=== PATIENT | male | born 1940 | race Caucasian/White ===

== ENCOUNTER → 2018-06-16 | Outpatient (CLI) | payer OTHER, MEDICARE ==
[~2018-06-16] MED LIST: ADULT LOW DOSE81 MG PO; FISHOIL; LISINOPRIL20 MG PO
[2018-06-16 09:58] LABS: ABSOLUTE BASOPHILS 0.1 thou/uL (0.0-0.2); ABSOLUTE EOSINOPHILS 0.5 thou/uL (0.0-0.7); ABSOLUTE LYMPHOCYTES 5.3 thou/uL (0.8-5.3); ABSOLUTE MONOCYTES 0.6 thou/uL (0.0-1.2); ABSOLUTE NEUTROPHILS 5.3 thou/uL (1.6-8.1); BASOPHILS 0.5 %; EOSINOPHILS 4.3 %; HEMATOCRIT 45.2 % (42.0-52.0); HEMOGLOBIN 15.2 gm/dL (14.0-18.0); LYMPHOCYTES 45.2 %; MCHC 33.7 g/dL (28.0-37.0); MONOCYTES 5.4 %; MPV 9.2 fl. (7.2-11.1); NUCLEATED RBCS 0 /100WBC; PLATELET COUNT* 240 thou/uL (150-400); POLYS 44.6 %; RBC 4.47 mil/uL (4.50-6.00); RDW-CV 13.2 % (10.5-14.5); WBC 11.8 thou/uL (4.0-11.0)
[2018-06-16 10:07] LABS: CALCIUM 9.9 mg/dL (8.5-10.1); CREATININE 1.3 mg/dL (0.6-1.3); POTASSIUM 4.6 mmol/L (3.5-5.1)
[2018-06-16 10:12] LABS: ALBUMIN 3.3 g/dL (3.4-5.0); TOTAL BILIRUBIN 0.9 mg/dL (<0.1-1.0); TOTAL PROTEIN 7.2 g/dL (6.4-8.2)
== END ==
LOC: M.LAB 09:39
PROVIDERS: Internal Medicine Cardiovascular Disease
DX: I48.91 Unspecified atrial fibrillation (principal)

== ENCOUNTER → 2020-11-03 | Outpatient (CLI) | payer OTHER, MEDICARE ==
[2020-11-03] VITALS (8 sets, daily range): BP systolic 119–172; BP diastolic 57–95
[~2020-11-03] MED LIST changes: +LIPITOR40 MG PO; +METFORMIN HCL500 M3 PO; +MICARDIS 80 MG80 MG PO; +MULTAQ400 MG PO; +XARELTO20 MG PO
--- NOTE | ~2020-11-03 | CARD ---
[address] [address] CARDIAC CATH REPORT Name: EDELJESSICA Skye Room: [facility]#: [id number] Admission: 11/03/20 Attend Phys: Jeevan Rock MD Discharge: Date of : 40 Report #: [id number] THIS REPORT FOR: //name// cc: Ajit Shah MD, Dean L. MD ~ CC: Ajit Rock DATE OF SERVICE: 11/03/2020 PROCEDURE: DC cardioversion. INDICATION: Persistent atrial fibrillation. DESCRIPTION OF PROCEDURE: After informed consent was obtained, the patient was brought to the cardiac holding area. A AYANNA was performed and will be reported separately. Finding no evidence of intracardiac thrombus and the patient underwent direct current cardioversion with a single biphasic shock of 300 joules. The patient was anesthetized with intravenous Versed and fentanyl for conscious sedation. The patient tolerated the procedure without complication. IMPRESSION: 1. Persistent atrial fibrillation. 2. Successful transesophageal guided direct current cardioversion to normal sinus rhythm. By: [id number] 1722Michael Fortino Rock MD, FACC /nt
[2020-11-03 13:20] LABS: HEMATOCRIT 43.7 % (42.0-52.0); HEMOGLOBIN 14.3 gm/dL (14.0-18.0); MCH 33.8 pg (26.0-34.0); MCHC 32.8 g/dL (28.0-37.0); MCV 103.1 fL (80.0-100.0); MPV 9.6 fl. (7.2-11.1); RBC 4.24 mil/uL (4.50-6.00); RDW-CV 13.5 % (10.5-14.5)
[2020-11-03 13:29] LABS: ALBUMIN 4.1 g/dL (3.4-5.0); POTASSIUM 4.2 mmol/L (3.5-5.1); TOTAL BILIRUBIN 0.9 mg/dL (<0.1-1.0); TOTAL PROTEIN 7.3 g/dL (6.4-8.2)
--- NOTE | 2020-11-03 16:52 | TEE ---
[place] [address] TRANSESOPHAGEAL ECHOCARDIOGRAM Name: JESSICA HOLLINGSWORTH Room: [facility]#: [id number] Admission: 11/03/20 Attend Phys: Jeevan Rock, Discharge: Date of : 40 Date of Service: 11/03/20 1651 Report #: [id number] THIS REPORT FOR: cc: Ajit Shah MD, Dean L. MD Liston, Michael J. MD [facility] ~ APPROVED REPORT Study performed: 11/03/2020 13:01:48 EXAM: Transesophageal Echocardiogram Patient Location: Out-Patient Status: routine BSA: 2.16 HR: 76 bpm BP: 161/71 mmHg Rhythm: Atrial Fibrillation Other Information Study Quality: Good Indications Atrial Fibrillation Echo Enhancing Agent Indication: Rule out Shunt Agent(s) / Amount(s) Used: Agitated Saline 10 cc Procedure After obtaining informed consent, patient underwent transesophageal echo in the [employer]. Type of Sedation : Conscious Sedation Sedation was administered by Paola Medrano RN. Sedation start time: 1330 Case end Time: 1345 Sedation was achieved intravenously with: Versed (5) Fentanyl (150) Transesophageal probe was inserted and advanced into esophagus without difficulty by Jeevan Rock MD, FAC. Echo enhancement indication: R/O Septal defect. Echo enhancement agent administered: Agitated Saline The AYANNA was performed without complications. Synchronized Cardioversion acheived with 300 Joules after 1 attempt(s). Rhythm following Synchronized Cardioversion: [place] [address] TRANSESOPHAGEAL ECHOCARDIOGRAM Name: JESSICA HOLLINGSWORTH Room: [facility]#: [id number] Admission: 11/03/20 Attend Phys: Jeevan Rock, Discharge: Date of : 40 Date of Service: 11/03/20 1651 Report #: [id number] Throughout the procedure, the blood pressure, pulse oximetry, cardiac rhythm, and rate were monitored. The patient tolerated the procedure without adverse effects. Recovery from conscious sedation was uneventful and vital signs were stable. Left Ventricle The left ventricle is normal size. There is normal LV segmental wall motion. There is normal left ventricular wall thickness. Left ventricular systolic function is normal. LVEF is 55-60%. Right Ventricle The right ventricle is normal size. The right ventricular systolic function is normal. Atria No thrombus is visualized in the left atrium or appendage. The interatrial septum is intact with no evidence for an atrial septal defect. The right atrium size is normal. Aortic Valve The aortic valve is normal in structure. No aortic regurgitation is present. There is no aortic valvular stenosis. Mitral Valve The mitral valve is normal in structure. Mild mitral regurgitation. No evidence of mitral valve stenosis. Tricuspid Valve The tricuspid valve is normal in structure. Trace tricuspid regurgitation. Pulmonic Valve The pulmonary valve is normal in structure. There is no pulmonic valvular regurgitation. Great Vessels The aortic root is normal in size. Pericardium There is no pericardial effusion. <Conclusion> The left ventricle is normal size. There is normal left ventricular wall thickness. Left ventricular [place] [address] TRANSESOPHAGEAL ECHOCARDIOGRAM Name: JESSICA HOLLINGSWORTH Room: [facility]#: [id number] Admission: 11/03/20 Attend Phys: Jeevan Rock, Discharge: Date of : 40 Date of Service: 11/03/201650 Report #: [id number] LVEF is 55-60%. The interatrial septum is intact with no evidence for an atrial septal defect. Mild mitral regurgitation. Trace tricuspid regurgitation. No thrombus is visualized in the left atrium or appendage. <ELECTRONICALLY SIGNED> By: Jeevan Rock MD, FACC 11/03/201650 50 50 Jeevan Rock MD, FACC /INF
== END | disposition home or self-care (01) ==
LOC: M.CL 12:36
PROVIDERS: ATTEND Internal Medicine Cardiovascular Disease
DX: I48.19 Other persistent atrial fibrillation (principal); I08.1 Rheumatic disorders of both mitral and tricuspid valves; Z98.890 Other specified postprocedural states; Z79.899 Other long term (current) drug therapy; Z79.01 Long term (current) use of anticoagulants; Z88.8 Allergy status to other drugs, medicaments and biological substances